=== PATIENT | male | born 1955 | race Caucasian/White ===

== ENCOUNTER 2017-09-06 08:10 | Day surgery (SDC) | payer OTHER ==
[2017-09-01 12:33] VITALS: BMI 25.0
[2017-09-06] MEDS ORDERED: PROPOFOL 20 ML ONE ×2 (08:29)
[2017-09-06 08:35] VITALS: TEMP 97.6
[2017-09-06 10:17] VITALS: BP 114/64; PULSE 56
== END 2017-09-06 10:22 | disposition home or self-care (01) ==
LOC: FASU-ENDO 08:10
PROVIDERS: ATTEND Internal Medicine Gastroenterology
PROC: 0DJD8ZZ Inspection of Lower Intestinal Tract, Via Natural or Artificial Opening Endoscopic (ICD-10-PCS; principal; 2017-09-06 09:27)
DX: Z12.11 Encounter for screening for malignant neoplasm of colon (principal)